=== PATIENT | female | born 1975 | race Caucasian/White ===

== ENCOUNTER 2019-08-22 05:13 | Observation (INO) ==
--- NOTE | 2019-08-17 09:52 | Anesthesiology Consultation ---
Date of Service August 17, 2019 Assessment & Plan (1) Encounter for pre-operative examination: - Check test AM DOS Per nursing phone assessment on 08/11: Travel screen- Lives in [facility]. Wears PPE. No known COVID-19 positive contacts. No current COVID-19 related symptoms. No hx of COVID-19 testing in past 30 days. Patient scheduled for preop protocol COVID-19 testing on 08/17 at [facility]. Awaiting results. Chart Review Chart Review: Acceptable Risk for Surgery (pending preop labs) and Patient NOT seen in Pre Admission Testing History Surgery Operation Date: 08/22/19 07:00 Proposed Procedures p Laparoscopic Cholecystectomy - Robert Castro MD, FACS Height/Weight Height: 5 ft 9 in Weight: 83.915 kg Allergies Allergy/AdvReac Type Severity Reaction Status Date / Time No Known Allergies Allergy Verified 08/12/19 08:51 Medications Home Medications Medication Instructions Recorded Confirmed Last Taken ascorbic acid (vitamin C) 500 mg 500 mg PO QPM 04/06/19 08/12/19 Unknown tablet folic acid 1 mg tablet 1 mg PO QPM 04/06/19 08/12/19 Unknown infliximab 100 mg intravenous 7 mg/kg IV Q8WK ea 04/06/19 08/12/19 Unknown solution lisinopril 10 mg tablet 10 mg PO QAM 04/06/19 08/12/19 Unknown methotrexate sodium 2.5 mg tablet 15 mg PO WK 04/06/19 08/12/19 Unknown naproxen 500 mg tablet 500 mg PO BID PRN 04/06/19 08/12/19 Unknown pantoprazole 20 mg tablet,delayed 20 mg PO QAM 04/06/19 08/12/19 Unknown release rosuvastatin 10 mg tablet 10 mg PO QPM 04/06/19 08/12/19 Unknown ergocalciferol (vitamin D2) 1,250 mcg PO WK 04/26/19 08/12/19 Unknown [Vitamin D2] Control Pill 1 tab PO QAM 08/12/19 08/12/19 Unknown Past Medical History Medical History GERD (gastroesophageal reflux disease) High cholesterol Hypertension Osteoporosis Rheumatoid arthritis Past Family History Family History Aunt Cancer Father Heart disease Hypertension Mother Hypertension Past Surgical History Surgical History H/O section History of total left hip replacement Hx of foot surgery RIGHT 3-4 TOES Hx of wisdom tooth extraction Social History Smoking Status: Never smoker Do You Dip or Chew Tobacco: No Hx Alcohol Use: Yes Alcohol type: beer, wine and hard liquor alcohol intake frequency: holidays/special occasions only Hx Substance Use: No
[2019-08-22] MEDS ORDERED: cefUROXime 1,500 MG in DEXTROSE 5% 100 ML IV SCH (06:00)
[2019-08-22] MEDS ORDERED: LR 15ML/HR IV SCH (06:00)
[2019-08-22] MEDS ORDERED: PROPOFOL IV EMULSION 10 MG/ML 20 ML VIAL IV ONE (06:25)
[2019-08-22] MEDS ORDERED: fentaNYL citrate 100 MCG/2 ML VIAL ONE ×2 (06:25→07:07)
[2019-08-22] MEDS ORDERED: ONDANSETRON INJ 2 MG/ML 2 ML VIAL ONE (06:25)
[2019-08-22] MEDS ORDERED: GLYCOPYRROLATE 0.2 MG/ML VIAL ONE (06:25)
[2019-08-22] MEDS ORDERED: MIDAZOLAM HCL 1 MG/ML 2ML VIAL ONE (06:25)
[2019-08-22] MEDS ORDERED: LIDOCAINE HCL 2% 2 ML VIAL/AMP(20MG/ML) INFIL ONE (06:25)
[2019-08-22] MEDS ORDERED: ROCURONIUM BROMIDE 10 MG/ML 5 ML VIAL IV ONE (06:25)
[2019-08-22] MEDS ORDERED: DEXAMETHASONE SOD INJ 4 MG/ML VIAL ONE (06:25)
[2019-08-22] MEDS ORDERED: NEOSTIGMINE METHYLSULFATE 5 MG/5 ML SYR ONE (06:25)
[2019-08-22] MEDS ORDERED: ATROPINE SULFATE 0.1 MG/ML 10ML SYR IV PRN (06:37)
[2019-08-22] MEDS ORDERED: ePHEDrine sulfate 50 MG/ML AMP IV PRN (06:37)
[2019-08-22] MEDS ORDERED: fentaNYL citrate 100 MCG/2 ML VIAL IV PRN (06:37)
[2019-08-22] MEDS ORDERED: ONDANSETRON INJ 2 MG/ML 2 ML VIAL IV PRN ×2 (06:37→08:54)
[2019-08-22] MEDS ORDERED: BUPIVACAINE 0.5 % 5 MG/1 ML MPF 30ML VIAL ONE (06:40)
--- NOTE | 2019-08-22 06:51 | History & Physical Report ---
Date of Service August 22, 2019 Assessment & Plan (1) Biliary colic: Patient is for laparoscopic cholecystectomy [facility] General anesthesia Observation History of Present Illness Primary Care Provider: Mike Alanis PA-C 43-year-old female with a history of right upper quadrant pain Her ultrasound shows gallstones Patient does have a history of rheumatoid arthritis Allergies Allergy/AdvReac Type Severity Reaction Status Date / Time No Known Allergies Allergy Verified 08/22/19 05:36 Home Medications Home Medications Medication Instructions Recorded Confirmed Type ascorbic acid (vitamin C) 500 mg 500 mg PO QPM 04/06/19 08/22/19 History tablet folic acid 1 mg tablet 1 mg PO QPM 04/06/19 08/22/19 History infliximab 100 mg intravenous 7 mg/kg IV Q8WK ea 04/06/19 08/22/19 History solution lisinopril 10 mg tablet 10 mg PO QAM 04/06/19 08/22/19 History methotrexate sodium 2.5 mg tablet 15 mg PO WK 04/06/19 08/22/19 History naproxen 500 mg tablet 500 mg PO BID PRN 04/06/19 08/22/19 History pantoprazole 20 mg tablet,delayed 20 mg PO QAM 04/06/19 08/22/19 History release rosuvastatin 10 mg tablet 10 mg PO QPM 04/06/19 08/22/19 History ergocalciferol (vitamin D2) 1,250 mcg PO WK 04/26/19 08/22/19 History [Vitamin D2] Control Pill 1 tab PO QAM 08/12/19 08/22/19 History Past Med/Surg History Medical History GERD (gastroesophageal reflux disease) High cholesterol Hypertension Osteoporosis Rheumatoid arthritis Surgical History H/O section History of total left hip replacement Hx of foot surgery RIGHT 3-4 TOES Hx of wisdom tooth extraction Family History Aunt Cancer Father Heart disease Hypertension Mother Hypertension Social History (Updated 04/08/19 @ 10:23 by Akosua Rapp RN) Preferred Language: Turkmen Communication Ability: Effective Band Nailer Required: No Beliefs That Will Affect Care: None marital status: Current Living Situation: Alone current occupational status: employed current occupation: Teacher Other Information That Helps Us Care for You: No Feels Safe at Home: Yes Safety Concerns: Feels Safe At This Time Smoking Status: Never smoker Do You Dip or Chew Tobacco: No ; Second Hand Exposure: No ; Tobacco Cessation Education Requested by Patient: No Hx Alcohol Use: Yes Alcohol type: beer, wine and hard liquor Hx Substance Use: No Review of Systems All systems reviewed & are unremarkable except as noted in HPI & below Physical Exam Constitutional: well developed and well nourished; no acute distress Eyes: + anicteric sclerae Respiratory: normal respiratory effort; no respiratory distress Cardiovascular: Rate/Rhythm: regular rate Gastrointestinal (Abdomen): Percussion/Palpation: abdomen soft Musculoskeletal: Gait: normal gait Skin: no rashes, warm and dry Neurologic: awake Psychiatric: Orientation: alert Results & Data Vital Signs (Past 12 Hours) Vital Signs Temp Pulse Resp BP Pulse Ox 08/22/19 05:40 36.8 C 75 20 157/93 H 100
[2019-08-22] MEDS ORDERED: ACETAMINOPHEN 1,000 MG/100 ML VIAL IV ONE (07:35)
--- NOTE | 2019-08-22 07:35 | Post Operative Brief Note ---
PG Immediate Post Op with CF Date of Surgery August 22, 2019 Pre & Post Diagnosis Operation Date: 08/22/19 07:00 Pre-Op Diagnosis: Biliary Colic Post-Op Diagnosis: Biliary Colic I identified the patient and participated in the time-out.: Yes Procedure Operation Date: 08/22/19 07:00 Actual Procedures p Laparoscopic Cholecystectomy(Not Applicable) - Robert Castro MD, FACS Surgeon Robert Castro MD, FACS Mastic Worker Tonya Campos Estimated Blood Loss 5 Findings Consistent with Post-Op Diagnosis Specimens Specimen Description: Permanent Specimen: A.) gallbladder and contents
--- NOTE | 2019-08-22 08:15 | Anesthesiology Progress Note ---
Date of Service August 22, 2019 Anesthesia Post Procedure Vital Signs Vital Signs: Temp Pulse Pulse Resp BP BP Pulse Ox 08/22/19 08:00 59 L 16 138/86 100 08/22/19 07:50 77 17 143/97 H 100 08/22/19 07:44 97.2 F L 89 15 150/96 H 100 08/22/19 05:40 98.2 F 75 20 157/93 H 100 Transfer of Care Handoff Completed per policy Notes Mental Status: alert / awake / arousable and participated in evaluation Patient Amnestic to Procedure: Yes Nausea / Vomiting: adequately controlled Pain: adequately controlled Airway Patency, RR, SpO2: stable & adequate BP & HR: stable & adequate Hydration State: stable & adequate Anesthetic Complications: no major complications apparent and Pt Satisfied with anesthetic care
[2019-08-22] MEDS: LACTATED RINGER'S 1,000 ML IV SCH ×2 (08:45→18:36)
[2019-08-22] MEDS ORDERED: HYDROCODONE/ACETAMOPHEN 5/325MG TAB PO PRN ×2 (08:54)
[2019-08-22] MEDS ORDERED: PROMETHAZINE HCL 25 MG in SODIUM CHLORIDE 0.9% 50 ML IV PRN (08:54)
[2019-08-22] MEDS ORDERED: INFLIXIMAB 100 MG/10 ML VIAL IV SCH (08:54)
[2019-08-22] MEDS ORDERED: MoRPHine SULFATE 2 MG/ML CARP IV PRN ×2 (08:54)
[2019-08-22] MEDS ORDERED: PROMETHAZINE HCL 12.5 MG in SODIUM CHLORIDE 0.9% 50 ML IV PRN (08:54)
[2019-08-22] MEDS ORDERED: 1.2 MICRON FILTER 1 EA IV ONE (08:54)
[2019-08-22] MEDS ORDERED: ACETAMINOPHEN 325 MG TAB PO PRN (08:54)
[2019-08-22] MEDS ORDERED: BIRTH CONTROL PILL PO SCH (09:00)
[2019-08-22] MEDS: PANTOprazole 40 MG TAB PO SCH (11:21)
[2019-08-22] MEDS: lisinopriL 10 MG TAB PO SCH (11:21)
--- NOTE | 2019-08-22 12:07 | Operative Report (OR) ---
DATE OF OPERATION: 08/22/2019 NAME OF OPERATION: Laparoscopic cholecystectomy. PREOPERATIVE DIAGNOSIS: Biliary colic. POSTOPERATIVE DIAGNOSIS: Biliary colic. STAFF SURGEON: Robert Castro MD. ANESTHESIA: General. VEGETABLE FARMWORKER: John Campos PA-C. DESCRIPTION OF PROCEDURE: The patient was brought in the operating room and placed on the operating table in supine position. Her abdomen was prepped and draped in usual fashion. Pneumatic stockings and orogastric tube were placed. 0.5% plain Marcaine was used to anesthetize all incisions. Incision was made just above the umbilicus, carrying dissection down to the fascia, placing a Veress needle producing pneumoperitoneum. An 11 mm port placed at this level and under visualization, three 5 mm ports were placed, 1 cephalad and 2 laterally. Under visualization, the gallbladder was grasped and retracted. It was aspirated of bile. I was able to identify the common bile duct. Dissection was carried out to the yuliana hepatis, identifying the cystic duct and cystic artery. These were clipped and transected, and the gallbladder was dissected away from the liver bed in the usual fashion, placed in an Endobag. After appropriate irrigation and hemostasis, the Endobag was removed through the umbilical site. The patient had multiple very small gallstones near the cystic duct. At this point, the fascia at the umbilicus closed using 0 Vicryl suture, then the skin reapproximated using subcuticular 4-0 Monocryl with Steri-Strips. The patient was transferred to recovery room in stable condition. My shipping and receiving assistant helped with prepping, draping, removal of the gallbladder and closure of the wounds. I attest to the content of the Intraoperative Record and any orders documented therein. Any exception s are noted below.
[2019-08-22] MEDS ORDERED: metHOTREXate sodium 2.5 MG TAB PO SCH (21:00)
[2019-08-22] MEDS ORDERED: ROSUVASTATIN CALCIUM 10 MG TAB PO SCH (21:00)
[2019-08-23] MEDS: PANTOprazole 40 MG TAB PO SCH (08:07)
[2019-08-23] MEDS: lisinopriL 10 MG TAB PO SCH (08:08)
--- NOTE | 2019-08-23 09:58 | Discharge Summary (DS) ---
PRINCIPAL DIAGNOSIS: Biliary colic. PROCEDURES: The patient underwent laparoscopic cholecystectomy. HISTORY OF PRESENT ILLNESS: The patient is a 43-year-old female with history of upper abdominal pain and nausea who has multiple gallstones on ultrasound, brought into the hospital for laparoscopic cholecystectomy. On 08/22/2019 she underwent laparoscopic cholecystectomy, which she tolerated very well. She has done well overnight and is felt stable for discharge home today to be followed in the surgical clinic within 1-2 weeks.
== END 2019-08-23 11:14 | disposition home or self-care (01) ==
LOC: ASU 05:13 → 3W 05:13